=== PATIENT | male | born 1970 | race Two or more races ===

== ENCOUNTER → 2018-09-05 | Emergency (ER) | payer SELFPAY ==
[~2018-09-05] VITALS: Ht 165.1 cm; Wt 104.3 kg
[2018-09-05 18:08] VITALS: BP 136/96
== END | disposition left against medical advice (07) ==
LOC: ER 18:05
DX: R00.2 Palpitations (principal); Z53.21 Procedure and treatment not carried out due to patient leaving prior to being seen by health care provider
CPT/HCPCS: 93005